=== PATIENT | female | born 1975 | race Caucasian/White ===

== ENCOUNTER → 2016-10-16 | Outpatient (CLI) | payer MEDICAID ==
--- NOTE | 2016-10-16 15:29 | DX ---
PA and Lateral Chest X-ray 1122 hours History: Persistent cough. Findings: Comparison the prior study of February 18, 2015. Heart size and pulmonary vasculature are normal . The lungs are clear without infiltrates or effusions. There is no pneumothorax. The lungs are mildl y hyperexpanded similar to the prior study. The osseous structures are intact. Impression: 1. Normal chest x-ray. 2. Hyperexpanded lungs probably related to increased inspiratory effort similar to the prior study. R ule out air trapping.
== END ==
LOC: FIMAGING 11:16
PROVIDERS: ATTEND Family Medicine
DX: R05 Cough (principal)

== ENCOUNTER → 2018-01-17 | Outpatient (CLI) | payer MEDICAID | LOC: BMCIMAGING 13:23 | PROVIDERS: ATTEND Family Medicine | DX: M25.512 Pain in left shoulder (principal) ==

== ENCOUNTER 2018-03-26 11:30 | Emergency (ER) | payer MEDICAID ==
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
[2018-03-26] MEDS ORDERED: KETOROLAC 30 MG/1 ML SDV IM ONE (12:00)
[2018-03-26 12:24] VITALS: BP 122/75
== END 2018-03-26 12:30 | disposition home or self-care (01) ==
DX: G43.909 Migraine, unspecified, not intractable, without status migrainosus (principal); F17.200 Nicotine dependence, unspecified, uncomplicated
CPT/HCPCS: 96374; J1885